=== PATIENT | male | born 1995 | race Caucasian/White ===

== ENCOUNTER 2022-01-15 14:18 | Emergency (ER) | payer OTHER ==
[~2022-01-15] VITALS: Ht 175.3 cm; Wt 77.1 kg
[2022-01-15 14:36] LABS: BASOPHILS % (AUTO) 0.8 % (0.0-5.0); HEMATOCRIT 44.2 % (42-54); LYMPHOCYTES % (AUTO) 16.3 % (21.0-51.0); MEAN CORPUSCULAR HEMOGLOBIN 32.4 pg (27.0-33.0); MEAN CORPUSCULAR HGB CONC 35.5 g/dL (32.0-36.0); MEAN CORPUSCULAR VOLUME 91.1 fL (79-99); MONOCYTES % (AUTO) 12.1 % (3.0-13.0); NEUTROPHILS % (AUTO) 70.5 % (40.0-77.0); PLATELET COUNT (AUTO) 387 K/uL (130-400); RED BLOOD CELL COUNT(AUTO) 4.85 MIL/uL (4.50-6.20); RED CELL DISTRIBUTION WIDTH 12.3 % (11.0-15.5); WHITE BLOOD COUNT (AUTO) 11.3 K/uL (4.8-10.8)
[2022-01-15 14:46] LABS: POTASSIUM 4.3 mmol/L (3.5-5.1)
[2022-01-15] MEDS ORDERED: 0.9%NACL 1000ML 1,000 ML IV ONE ×2 (15:00→15:30)
[2022-01-15 15:08] LABS: ALBUMIN 4.8 g/dL (3.5-5.0); BILIRUBIN,TOTAL 1.5 mg/dL (0.2-1.0); TOTAL PROTEIN, SERUM 8.2 g/dL (6.0-8.3)
[2022-01-15] MEDS ORDERED: ONDANSETRON 4MG INJ ONE (15:09)
[2022-01-15] MEDS ORDERED: FAMOTIDINE 20MG VIAL IV ONE ×2 (15:09→15:30)
[2022-01-15] MEDS ORDERED: ONDANSETRON 4MG INJ IVP ONE (15:30)
[2022-01-15 17:52] VITALS: BP 129/94
[2022-01-15] MEDS ORDERED: ONDA4TAB10 PO (18:00)
[2022-01-15] MEDS ORDERED: FAMO-136 PO (18:00)
== END 2022-01-15 18:09 | disposition home or self-care (01) ==
LOC: EDH 14:18
DX: R11.2 Nausea with vomiting, unspecified (principal); Z72.89 Other problems related to lifestyle
CPT/HCPCS: 36415; 80053; 82550 ×2; 83690; 84484; 85025; 93005; 96361; 96374; 96375; 99285; J2405; J3490; J7030 ×2